=== PATIENT | female | born 1995 | race Caucasian/White ===

== ENCOUNTER 2021-06-02 11:59 | Emergency (ER) | payer OTHER ==
[~2021-06-02 11:59] MED LIST: NAPROSYN500 MG PO
[2021-06-02 13:18] LABS: HEMOGLOBIN 14.4 gm/dl (12.3-15.3); RED BLOOD COUNT 4.63 M/UL (4.00-5.10); WHITE BLOOD COUNT 8.3 K/UL (4.5-11.0)
[2021-06-02 13:43] LABS: BUN/CREATININE RATIO 10 (0-10)
[2021-06-02] MEDS ORDERED: ZOFRAN 4 MG TAB4 MG PO (19:48)
[2021-06-02] MEDS ORDERED: HYDROCODONE-AC1 EACH PO (19:48)
[2021-06-02] MEDS ORDERED: IBUPROFEN600 MG PO (19:48)
== END 2021-06-02 20:07 | disposition home or self-care (01) ==
LOC: ER1 11:59
PROVIDERS: Physician Assistant
DX: N20.2 Calculus of kidney with calculus of ureter (principal); I10 Essential (primary) hypertension
CPT/HCPCS: 80053; 81001; 84703; 85025; 96374; 96375; 99284; J1885; J2270; J2405; Q9967